=== PATIENT | male | born 1985 | race Two or more races ===

== ENCOUNTER 2021-05-25 12:47 | Emergency (ER) | payer SELFPAY ==
[~2021-05-25] VITALS: Ht 170.2 cm; Wt 90.7 kg
[2021-05-25] MEDS ORDERED: AZIT500T66 PO (14:07)
[2021-05-25] MEDS ORDERED: ACET-1080 PO (14:07)
[2021-05-25] MEDS ORDERED: METH4PAK PO (14:07)
[2021-05-25 14:40] VITALS: BP 152/88
== END 2021-05-25 14:50 | disposition home or self-care (01) ==
LOC: ER 12:47
DX: J10.1 Influenza due to other identified influenza virus with other respiratory manifestations (principal)
CPT/HCPCS: 71045

== ENCOUNTER 2021-06-02 15:47 | Emergency (ER) | payer SELFPAY ==
[~2021-06-02] VITALS: Ht 167.6 cm; Wt 89.4 kg
[~2021-06-02 15:47] MED LIST: ACET-1080 PO; AZIT500T66 PO; METH4PAK PO
[2021-06-02 18:02] VITALS: BP 143/83
== END 2021-06-02 18:27 | disposition home or self-care (01) ==
LOC: ER 15:47
DX: J18.9 Pneumonia, unspecified organism (principal)
CPT/HCPCS: 71046

== ENCOUNTER 2021-06-21 15:43 | Emergency (ER) | payer SELFPAY ==
[~2021-06-21] VITALS: Ht 170.2 cm; Wt 88.5 kg
[2021-06-21] MEDS ORDERED: ASPirin 325 MG TAB PO ONE (17:15)
[2021-06-21 17:55] LABS: Albumin 4.9 g/dL (3.4-5.0); Calcium 9.2 mg/dL (8.5-10.1); Potassium 4.2 mmol/L (3.5-5.1)
[2021-06-21 18:04] LABS: BUN/Creatinine Ratio 16.5; Bilirubin, Total 0.6 mg/dL (0.2-1.0); Total Protein 8.1 g/dL (6.4-8.2)
[2021-06-21 18:05] LABS: Basophils # (auto) 0 10 ^3/uL (0-0.2); Basophils % (auto) 0.6 % (0.0-2.0); Eosinophils # (auto) 0.2 10 ^3/uL (0-0.8); Eosinophils % (auto) 2.7 % (0.0-7.0); Hematocrit 46.2 % (41.0-53.0); Hemoglobin 15.7 g/dL (13.5-17.5); Lymphocytes # (auto) 2.4 10 ^3/uL (0.4-5.4); Lymphocytes % (auto) 29.2 % (10.0-50.0); Mean Corpuscular Volume 88.1 fL (80.0-100.0); Monocytes # (auto) 0.6 10 ^3/uL (0-1.3); Monocytes % (auto) 7.6 % (0.0-12.0); Neutrophils # (auto) 4.9 10 ^3/uL (1.6-8.6); Neutrophils % (auto) 59.9 % (37.0-80.0); Nucleated Red Blood Cells % 0.1 %; Red Blood Cells 5.24 10^6/uL (4.5-5.90); Red Cell Distribution Width 12.8 % (11.8-14.3); White Blood Cell 8.2 10^3/uL (4.4-10.8)
[2021-06-21] MEDS ORDERED: IOHEXOL 350 MG/ML 100ML IJ ONE (20:08)
[2021-06-21] MEDS ORDERED: ASPirin 81 mg TAB ONE (20:11)
[2021-06-21] MEDS ORDERED: IBUP800T27 PO (21:42)
[2021-06-21] MEDS ORDERED: META800T37 PO (21:42)
[2021-06-21] MEDS ORDERED: IBUPROFEN 800 MG TAB PO ONE (21:45)
[2021-06-22 02:50] VITALS: BP 133/80
== END 2021-06-22 02:58 | disposition home or self-care (01) ==
LOC: ER 15:45
DX: R07.89 Other chest pain (principal); E78.5 Hyperlipidemia, unspecified; Z79.2 Long term (current) use of antibiotics; Z79.899 Other long term (current) drug therapy
CPT/HCPCS: 36415; 71046; 71275; 80053; 83690; 84484; 85025; 93005; 99285; Q9967

== ENCOUNTER 2021-08-09 03:37 | Emergency (ER) | payer MEDICAID, OTHER ==
[~2021-08-09] VITALS: Ht 167.6 cm; Wt 89.8 kg
[~2021-08-09 03:37] MED LIST changes: +IBUP800T27 PO; +META800T37 PO
[2021-08-09 05:50] LABS: Basophils # (auto) 0.1 10 ^3/uL (0-0.2); Basophils % (auto) 0.8 % (0.0-2.0); Eosinophils # (auto) 0.1 10 ^3/uL (0-0.8); Eosinophils % (auto) 2.3 % (0.0-7.0); Hematocrit 47.1 % (41.0-53.0); Hemoglobin 16.3 g/dL (13.5-17.5); Lymphocytes # (auto) 1.7 10 ^3/uL (0.4-5.4); Lymphocytes % (auto) 26.1 % (10.0-50.0); Mean Corpuscular Hemoglobin 30.4 pg (28.0-32.0); Mean Corpuscular Hgb Conc. 34.5 g/dL (32.0-36.0); Monocytes # (auto) 0.4 10 ^3/uL (0-1.3); Neutrophils # (auto) 4.1 10 ^3/uL (1.6-8.6); Neutrophils % (auto) 63.8 % (37.0-80.0); Nucleated Red Blood Cells % 0.1 %; Red Blood Cells 5.35 10^6/uL (4.5-5.90); Red Cell Distribution Width 13.7 % (11.8-14.3); White Blood Cell 6.4 10^3/uL (4.4-10.8)
[2021-08-09 05:55] LABS: BUN/Creatinine Ratio 12.3; Calcium 8.7 mg/dL (8.5-10.1); Potassium 3.9 mmol/L (3.5-5.1)
[2021-08-09 06:00] LABS: Bilirubin, Total 0.5 mg/dL (0.2-1.0); Total Protein 7.3 g/dL (6.4-8.2)
[2021-08-09 06:53] VITALS: BP 119/78
== END 2021-08-09 06:54 | disposition home or self-care (01) ==
LOC: ER 03:40
DX: B34.9 Viral infection, unspecified (principal); Z79.899 Other long term (current) drug therapy; Z79.1 Long term (current) use of non-steroidal anti-inflammatories (NSAID); Z79.2 Long term (current) use of antibiotics
CPT/HCPCS: 36415; 71045; 80053; 84484; 85025; 93005